=== PATIENT | female | born 1935 | race Caucasian/White ===

== ENCOUNTER → 2019-04-27 | Outpatient (CLI) | payer MEDICARE, BC ==
--- NOTE | 2019-04-27 10:36 | FL ---
EXAMINATION TYPE: FL barium swallow DATE OF EXAM: 04/27/2019 CLINICAL HISTORY: Worsening dysphagia, regurgitation, gastroesophageal reflux, hoarseness, and mid es ophageal pain for years (acute on chronic). TECHNIQUE: A double contrast esophagram is performed utilizing air and barium. A total of 1.39 ledy kady of fluoroscopic time was utilized during procedure. 46 fluoroscopic images were saved during the examination. COMPARISON: None FINDINGS: The esophagus shows diffusely abnormal esophageal motility with tertiary contractions throu ghout the examination and esophageal spasm. There is delayed flow through the distal esophagus into t he gastroesophageal junction and stomach. This appears to be a smooth stricture in a long segment in combination with esophageal spasm as there is eventual but markedly delayed relative distention. Sunday joan is noted however to be less than 50% of the more proximal esophagus. Esophageal contour is diffus nadia lobulated. Marked intraesophageal reflux to the level of the upper esophagus and therefore supine imaging was not performed. IMPRESSION: Long segment mid grade stricture with superimposed esophageal spasm. Eventual distention (to less than 50% of the more proximal esophageal caliber) of the stricture is seen with subsequent p assage of contrast into the stomach after marked delay. Severe intraesophageal reflux and severely a bnormal esophageal motility with numerous tertiary contractions and esophageal spasms.
== END | disposition home or self-care (01) ==
LOC: RADUSWWP 07:48
PROVIDERS: ATTEND Otolaryngology
DX: K21.9 Gastro-esophageal reflux disease without esophagitis (principal); K22.4 Dyskinesia of esophagus
CPT/HCPCS: 74220

== ENCOUNTER 2019-05-10 11:29 | Day surgery (SDC) | payer MEDICARE, BC ==
[2019-05-08 16:04] VITALS: BMI 23.8
[~2019-05-10 11:29] MED LIST: LACTATED RINGERS 1,000 ML IV SCH; LIDOCAINE 1% 20 ML VIAL (10MG/ML) FOR IV START INTRADERMA PRN
[2019-05-10 12:03] VITALS: RESP 16; TEMP 98.3
[2019-05-10] MEDS ORDERED: LIDOCAINE 1% INJ 10MG/ML (20 ML MDV) ONE (12:12)
[2019-05-10] MEDS ORDERED: PROPOFOL 10 MG/ML 20 ML VIAL IV ONE (12:12)
--- NOTE | 2019-05-10 12:30 | P.PCN ---
Date of Procedure: 05/10/19 Procedure(s) Performed: BRIEF HISTORY: Patient is a 83-year-old, pleasant, white female, scheduled for an upper endoscopy as a part of evaluation of progressive dysphagia to solids and liquids of several years duration. She has intermittent dysphagia to solids and has passive regurgitation with fullness in the midsternal area. Recent barium esophagogram showed evidence of distal/mid esophageal stricture and evidence of esophageal dysmotility. She is hence scheduled for an upper endoscopy with possible dilation. PROCEDURE PERFORMED: Esophagogastroduodenoscopy with biopsy. PREOPERATIVE DIAGNOSIS: Intermittent dysphagia to solids for the last several years duration IV sedation per anesthesia. PROCEDURE: After informed consent was obtained, the patient was brought into the endoscopy unit. IV sedation was administered by Anesthesia under continuous monitoring. Initially the Olympus GIF-140 video endoscope was inserted into the mouth. Esophagus intubated without any difficulty. It was gradually advanced into the stomach and duodenum and carefully examined. The bulb and the second part of the duodenum appeared normal. The scope at this time was withdrawn to the stomach, adequately insufflated with air, and upon careful examination, mucosa of the antrum, body, cardia and the fundus appeared normal. The scope was then withdrawn into the esophagus. The GE junction was located at 39 cm from the incisors. The esophagus appeared normal. There were no erosions or ulcerations seen. There was no evidence of esophageal stricture. There was evidence of esophageal dysmotility noted. Multiple biopsies were done in the mid and distal esophagus and the patient tolerated the procedure well. IMPRESSION: 1. No evidence of esophageal stricture or esophagitis 2. Possible esophageal dysmotility 3. Mild antral gastritis RECOMMENDATIONS: The findings of this examination were discussed with the patient as well as her family. She was advised to follow with the biopsy results. She will be a candidate for esophageal manometry if she continues to have persistent symptoms.
[2019-05-10 12:54] VITALS: BP 163/73; PULSE 70
== END 2019-05-10 13:18 | disposition home or self-care (01) ==
LOC: ORWHC2ENDO 11:29
PROVIDERS: ATTEND Internal Medicine Gastroenterology
DX: K29.50 Unspecified chronic gastritis without bleeding (principal); K20.9 Esophagitis, unspecified; I25.10 Atherosclerotic heart disease of native coronary artery without angina pectoris; E07.9 Disorder of thyroid, unspecified; Z88.2 Allergy status to sulfonamides; Z88.5 Allergy status to narcotic agent; Z88.8 Allergy status to other drugs, medicaments and biological substances; Z95.5 Presence of coronary angioplasty implant and graft; Z79.890 Hormone replacement therapy; Z79.899 Other long term (current) drug therapy
CPT/HCPCS: 88305; 43239; J2001; J2704

== ENCOUNTER 2020-10-11 17:20 | Inpatient (IN) | payer MEDICARE, BC ==
[2020-10-11 17:44] LABS: Glucose,Whole Blood 93 mg/dL (75-99)
[2020-10-11] MEDS ORDERED: SODIUM CHLORIDE 0.9% 500 ML 500 ML IV STA (17:49)
[2020-10-11 18:05] LABS: Basophils # (A) 0.1 k/uL (0-0.2); Basophils % (A) 1 %; Eosinophils # (A) 0.2 k/uL (0-0.7); Eosinophils % (A) 3 %; HCT 44.1 % (34.0-46.0); HGB 13.9 gm/dL (11.4-16.0); Lymphocytes # (A) 1.5 k/uL (1.0-4.8); Lymphocytes % (A) 25 %; MCH 29.3 pg (25.0-35.0); MCHC 31.6 g/dL (31.0-37.0); MCV 92.8 fL (80.0-100.0); Mean Platelet Volume 9.1; Monocytes # (A) 0.4 k/uL (0-1.0); Monocytes % (A) 7 %; Neutrophils # (A) 3.6 k/uL (1.3-7.7); Neutrophils % (A) 61 %; Platelet Count 165 k/uL (150-450); RBC 4.75 m/uL (3.80-5.40); RDW 13.3 % (11.5-15.5); WBC 5.9 k/uL (3.8-10.6)
--- NOTE | 2020-10-11 18:10 | ED ---
General Adult HPI - General Chief complaint: Eye Problems Stated complaint: Double Vision Time Seen by Provider: 10/11/20 17:43 Source: patient, RN notes reviewed, old records reviewed Mode of arrival: wheelchair Limitations: no limitations - History of Present Illness Initial comments: 85-year-old female presenting with double vision. Patient noted double vision around 10 AM this morning. She denies focal numbness or weakness. Denies headache. She states she has been feeling off balance for several days. She had bruising around her left eye but denies any specific had arrived trauma. She states the double vision improves with covering of each eye individually. Denies blurry vision. She has a history of macular degeneration as well. - Related Data Home Medications Medication Instructions Recorded Confirmed Aspirin [Adult Low Dose Aspirin EC] 81 mg PO DAILY 05/08/19 05/10/19 Albuterol Nebulized [Ventolin 2.5 mg INHALATION BID 05/09/19 05/10/19 Nebulized] Alendronate Sodium [Fosamax] 35 mg PO DAILY 05/09/19 05/10/19 Calcium Carbonate [Calcium] 600 mg PO DAILY 05/09/19 05/10/19 Cholecalciferol [Vitamin D3 (25 1,000 unit PO DAILY 05/09/19 05/10/19 Mcg = 1000 Iu)] Cyanocobalamin (Vitamin B-12) 1,000 mcg PO DAILY 05/09/19 05/10/19 [Vitamin B-12] Dorzolamide/Timolol/Pf 2 drop BOTH EYES DAILY 05/09/19 05/10/19 [Dorzolamide 2%-Timolol 0.5%] Fexofenadine HCl [Ailin Allergy] 180 mg PO DAILY 05/09/19 05/10/19 Fluticasone Nasal [place] [Flonase 2 spr EA NOSTRIL QID 05/09/19 05/10/19 Nasal [place]] Folic Acid 1 mg PO DAILY 05/09/19 05/10/19 Gabapentin [Neurontin] 400 mg PO BID 05/09/19 05/10/19 Ipratropium [place] 0.06%Nasal 2 spray EA NOSTRIL QID 05/09/19 05/10/19 [Atrovent Nasal 0.06%] Isosorbide Mononitrate ER [Imdur] 30 mg PO DAILY 05/09/19 05/10/19 Levothyroxine Sodium [Synthroid] 88 mcg PO DAILY 05/09/19 05/10/19 Loteprednol Etabonate [Lotemax] 1 drop BOTH EYES MOWEFR 05/09/19 05/10/19 Magnesium Oxide [Mag-Ox] 250 mg PO DAILY 05/09/19 05/10/19 Meclizine HCl 25 mg PO DAILY PRN 05/09/19 05/10/19 Meclizine [Antivert] 25 mg PO DAILY PRN 05/09/19 05/10/19 Melatonin 5 mg PO DAILY 05/09/19 05/10/19 Montelukast [Singulair] 10 mg PO DAILY 05/09/19 05/10/19 Naproxen 500 mg PO DAILY PRN 05/09/19 05/10/19 Omeprazole 20 mg PO BID 05/09/19 05/10/19 Pyridoxine HCl (Vitamin B6) 100 mg PO DAILY 05/09/19 05/10/19 [Vitamin B-6] Venlafaxine HCl [Effexor XR] 150 mg PO DAILY 05/09/19 05/10/19 traZODone HCL 50 mg PO DAILY 05/09/19 05/10/19 Allergies Allergy/AdvReac Type Severity Reaction Status Date / Time codeine Allergy Itching Verified 10/11/20 17:35 povidone-iodine Allergy Rash/Hives Verified 10/11/20 17:35 [From Betadine] soap [From Betadine] Allergy Rash/Hives Verified 10/11/20 17:35 Sulfa (Sulfonamide Allergy Unknown Verified 10/11/20 17:35 Antibiotics) Review of Systems ROS Statement: Those systems with pertinent positive or pertinent negative responses have been documented in the HPI. ROS Other: All systems not noted in ROS Statement are negative. Past Medical History Past Medical History: Asthma, CVA/TIA, Osteoarthritis (OA) Additional Past Medical History / Comment(s): worsening weakness, difficulty swallowing History of Any Multi-Drug Resistant Organisms: None Reported Past Surgical History: Back Surgery, Breast Surgery, Cholecystectomy, Heart Catheterization, Heart Catheterization With Stent, Hysterectomy Additional Past Surgical History / Comment(s): rods in back Past Anesthesia/Blood Transfusion Reactions: Motion Sickness Additional Past Anesthesia/Blood Transfusion Reaction / Comment(s): dizziness Date of Last Stent Placement:: 2014 Past Psychological History: Depression Smoking Status: Former smoker Past Drug Use History: None Reported - Past Family History Brother(s) Family Medical History: Cancer Sister(s) Family Medical History: Coronary Artery Disease (CAD) General Exam Limitations: no limitations General appearance: alert, in no apparent distress Head exam: Present: atraumatic, normocephalic Eye exam: Present: PERRL, periorbital swelling, other (Ecchymosis around the left eye, with periorbital soft tissue swelling. She does appear to have a medial gaze of the left eye which is somewhat inferior.) ENT exam: Present: normal exam Neck exam: Present: normal inspection. Absent: tenderness, meningismus Respiratory exam: Present: normal lung sounds bilaterally. Absent: respiratory distress Cardiovascular Exam: Present: regular rate, normal rhythm GI/Abdominal exam: Present: soft. Absent: distended, tenderness, guarding Extremities exam: Present: normal inspection, normal capillary refill. Absent: pedal edema, calf tenderness Neurological exam: Present: alert, motor sensory deficit (Left eye has inferior medial gaze, however patient is able to rotate laterally and superiorly.). Absent: CN II-XII intact Psychiatric exam: Present: normal affect, normal mood Skin exam: Present: warm, dry, intact. Absent: cyanosis, diaphoretic Course Vital Signs 10/11/20 17:27 Temperature 97.8 F Pulse Rate 65 Respiratory 20 Rate Blood Pressure 134/74 O2 Sat by Pulse 95 Oximetry EKG Findings - EKG Comments: EKG Findings:: EKG: Normal sinus rhythm, rate of 61, MA interval 136, QRS duration 82, QTC 426, no ST segment elevation Medical Decision Making - Medical Decision Making 85-year-old female presenting with double vision, and unsteady gait. She has no focal numbness or weakness. No headache. She has bruising around the left eye suggestive of trauma but there is no trauma reported. CT facial bones and brain has been ordered, negative for intracranial hemorrhage or mass effect, no traumatic injury. She does seem to have a medial inferior gaze of the left eye at rest. Although her extraocular motions are grossly intact. Patient has normal CBC, normal CMP she is in sinus rhythm. I do have a suspicion for stroke in this patient. MRI has been ordered. Case has been discussed with Dr. Parekh who will admit. Neurology placed on consult. - Lab Data Result diagrams: 10/11/20 17:50 10/11/20 17:50 Lab Results 10/11/20 10/11/20 10/11/20 Range/Units 17:42 17:50 17:50 WBC 5.9 (3.8-10.6) k/uL RBC 4.75 (3.80-5.40) m/uL Hgb 13.9 (11.4-16.0) gm/dL Hct 44.1 (34.0-46.0) % MCV 92.8 (80.0-100.0) fL MCH 29.3 (25.0-35.0) pg MCHC 31.6 (31.0-37.0) g/dL RDW 13.3 (11.5-15.5) % Plt Count 165 (150-450) k/uL MPV 9.1 Neutrophils % 61 % Lymphocytes % 25 % Monocytes % 7 % Eosinophils % 3 % Basophils % 1 % Neutrophils # 3.6 (1.3-7.7) k/uL Lymphocytes # 1.5 (1.0-4.8) k/uL Monocytes # 0.4 (0-1.0) k/uL Eosinophils # 0.2 (0-0.7) k/uL Basophils # 0.1 (0-0.2) k/uL PT 10.6 (9.0-12.0) sec INR 1.0 (<1.2) APTT 25.2 (22.0-30.0) sec Sodium (137-145) mmol/L Potassium (3.5-5.1) mmol/L Chloride (98-107) mmol/L Carbon Dioxide (22-30) mmol/L Anion Gap mmol/L BUN (7-17) mg/dL Creatinine (0.52-1.04) mg/dL Est GFR (CKD-EPI)AfAm (>60 ml/min/1.73 sqM) Est GFR (CKD-EPI)NonAf (>60 ml/min/1.73 sqM) Glucose (74-99) mg/dL POC Glucose (mg/dL) 93 (75-99) mg/dL POC Glu [employer] ID Kash Marks Calcium (8.4-10.2) mg/dL Total Bilirubin (0.2-1.3) mg/dL AST (14-36) U/L ALT (4-34) U/L Alkaline Phosphatase (38-126) U/L Total Protein (6.3-8.2) g/dL Albumin (3.5-5.0) g/dL 10/11/20 Range/Units 17:50 WBC (3.8-10.6) k/uL RBC (3.80-5.40) m/uL Hgb (11.4-16.0) gm/dL Hct (34.0-46.0) % MCV (80.0-100.0) fL MCH (25.0-35.0) pg MCHC (31.0-37.0) g/dL RDW (11.5-15.5) % Plt Count (150-450) k/uL MPV Neutrophils % % Lymphocytes % % Monocytes % % Eosinophils % % Basophils % % Neutrophils # (1.3-7.7) k/uL Lymphocytes # (1.0-4.8) k/uL Monocytes # (0-1.0) k/uL Eosinophils # (0-0.7) k/uL Basophils # (0-0.2) k/uL PT (9.0-12.0) sec INR (<1.2) APTT (22.0-30.0) sec Sodium 139 (137-145) mmol/L Potassium 4.6 (3.5-5.1) mmol/L Chloride 104 (98-107) mmol/L Carbon Dioxide 30 (22-30) mmol/L Anion Gap 5 mmol/L BUN 23 H (7-17) mg/dL Creatinine 0.65 (0.52-1.04) mg/dL Est GFR (CKD-EPI)AfAm >90 (>60 ml/min/1.73 sqM) Est GFR (CKD-EPI)NonAf 81 (>60 ml/min/1.73 sqM) Glucose 96 (74-99) mg/dL POC Glucose (mg/dL) (75-99) mg/dL POC Glu [employer] Services Manager ID Calcium 9.6 (8.4-10.2) mg/dL Total Bilirubin 0.5 (0.2-1.3) mg/dL AST 32 (14-36) U/L ALT 23 (4-34) U/L Alkaline Phosphatase 90 (38-126) U/L Total Protein 7.0 (6.3-8.2) g/dL Albumin 3.8 (3.5-5.0) g/dL Disposition Clinical Impression: Double vision Disposition: ADMITTED IP TO THIS [facility] Condition: Stable Is patient prescribed a controlled substance at d/c from ED?: No Referrals: Jolie Waddell MD [Primary Care Provider] - 1-2 days Decision to Admit Reason: Admit from EC Decision Date: 10/11/20 Decision Time: 19:39
[2020-10-11 18:19] LABS: ALT 23 U/L (4-34); AST 32 U/L (14-36); African American GFR (CKD) >90 (>60 ml/min/1.73 sqM); Albumin 3.8 g/dL (3.5-5.0); Alkaline Phosphatase 90 U/L (38-126); Anion Gap 5 mmol/L; Blood Urea Nitrogen 23 mg/dL (7-17); Calcium 9.6 mg/dL (8.4-10.2); Carbon Dioxide 30 mmol/L (22-30); Chloride 104 mmol/L (98-107); Glucose 96 mg/dL (74-99); Non-African American GFR(CKD) 81 (>60 ml/min/1.73 sqM); Potassium 4.6 mmol/L (3.5-5.1); Sodium 139 mmol/L (137-145); Total Bilirubin 0.5 mg/dL (0.2-1.3)
[2020-10-11 18:20] LABS: Partial Thromboplastin Time 25.2 sec (22.0-30.0); Prothrombin Time 10.6 sec (9.0-12.0)
--- NOTE | 2020-10-11 19:04 | CT ---
EXAMINATION TYPE: CT brain wo con DATE OF EXAM: 10/11/2020 HISTORY: Left orbital injury with bruising.. Neuro deficit, acute, stroke suspected. CT DLP: 1278.4 mGycm. Automated Exposure Control for Dose Reduction was Utilized. TECHNIQUE: CT scan of the head is performed without contrast. COMPARISON: None FINDINGS: There is no acute intracranial hemorrhage, midline shift, or mass effect identified. The ventricles, sulci, and cisterns are normal in size and configuration. No abnormal extra-axial fluid collection. No depressed calvarial fracture. Extracranial soft tissues are grossly unremarkable. The globes are grossly symmetric with cataract postsurgical changes. Visual ized sinuses and mastoid air cells are clear. IMPRESSION: No acute intracranial hemorrhage, midline shift, or mass effect.
--- NOTE | 2020-10-11 19:06 | CT ---
EXAMINATION TYPE: CT facial bones wo con DATE OF EXAM: 10/11/2020 COMPARISON: None HISTORY: Left orbital injury with bruising. CT DLP: 1278.4 mGycm Automated exposure control for dose reduction was used. TECHNIQUE: CT scan of the sinuses is performed without contrast, axial images are obtained, coronal r eformatted images are also reviewed. FINDINGS: The paranasal sinuses are well aerated. Ethmoid air cells are clear. No evidence of facial bone fracture. No significant soft tissue swelling. Globes are grossly symmetric with cataract posts urgical change. IMPRESSION: No facial bone fracture.
--- NOTE | 2020-10-11 19:08 | XR ---
EXAMINATION TYPE: XR chest 2V DATE OF EXAM: 10/11/2020 CLINICAL HISTORY: altered mental status. TECHNIQUE: Frontal and lateral view of the chest. COMPARISON: None FINDINGS: The cardiomediastinal silhouette is within normal limits for size. Pulmonary vasculature i s normal. There is no focal air space opacity. No pleural effusion. No pneumothorax seen. No acute d isplaced osseous fracture. Degenerative changes of the spine. Incompletely visualized lumbar fixation hardware. IMPRESSION: No acute cardiopulmonary process.
[2020-10-11] MEDS ORDERED: ASPIRIN 325 MG TAB PO STA (19:19)
[2020-10-11] MEDS: SODIUM CHLORIDE 0.9% 1,000 ML IV SCH (20:29)
[2020-10-11] MEDS: HEPARIN SODIUM,PORCINE/PF 5,000 UNIT/0.5 ML SYRINGE SQ SCH (20:30)
[2020-10-11] MEDS ORDERED: MELATONIN 5 MG TABLET PO PRN (21:50)
[2020-10-11] MEDS ORDERED: ALBUTEROL HFA INHALER INHALATION PRN (21:50)
[2020-10-11] MEDS ORDERED: MECLIZINE 25 MG TAB PO PRN (21:50)
--- NOTE | 2020-10-11 21:56 | HP ---
HISTORY AND PHYSICAL DATE OF SERVICE: 10/11/2020 CHIEF COMPLAINT: Left eye ecchymosis as well as double vision. HISTORY OF PRESENT ILLNESS: This 85-year-old woman with a past medical history of multiple medical problems, including asthma, CVA, TIA, DJD, history of worsening weakness, difficulty in swallowing, history of CAD, stent, being followed by a primary physician in the [facility], was actually noted to have some ecchymosis around the left eye by the family for several days, and this morning the patient was having double vision, mostly in the left side, and the patient also had some unsteadiness on the left side. The patient came to [facility] and was admitted to for further evaluation and treatment. The initial CT scan, including the face CT scan, did not show any acute abnormality. The patient is being closely monitored at this time. There is no history of any fever, rigor or chills. No history of headache, loss of consciousness, seizures at this time. Patient also complains of ear itching. PAST MEDICAL HISTORY: Asthma, CVA, TIA, DJD, history of back surgery. MEDICATIONS: Medications prior to admission include trazodone, Effexor XR, vitamin B6, omeprazole, Naprosyn, Singulair, melatonin, Antivert, meclizine, magnesium oxide, Lotemax, Synthroid, Imdur, Atrovent, Neurontin, Flonase, Ailin, dorzolamide, vitamin B12, vitamin D3, calcium, aspirin, Fosamax, Ventolin. ALLERGIES: CODEINE, POVIDONE-IODINE, SOAP AND SULFA. FAMILY HISTORY: History of cancer in the family. SOCIAL HISTORY: No history of smoking. No history of alcohol intake. REVIEW OF SYSTEMS: ENT: No diminished hearing. No diminished vision. CARDIOVASCULAR SYSTEM: No angina, palpitations. RESPIRATORY SYSTEM: As mentioned earlier. GI: As mentioned earlier. : No dysuria or retention. NERVOUS SYSTEM: No numbness, weakness. ALLERGY/IMMUNOLOGY: No asthma, hayfever. MUSCULOSKELETAL: As mentioned earlier. HEMATOLOGY/ONCOLOGY: No history of anemia. ENDOCRINE: As mentioned earlier. CONSTITUTIONAL: As mentioned earlier. DERMATOLOGY: Negative. RHEUMATOLOGY: Negative. PSYCHIATRY: As mentioned earlier. NEUROLOGICAL: As mentioned earlier. PHYSICAL EXAMINATION: Alert and oriented x3. Pulse 65, blood pressure 135/70, respiration 20, temperature 97.8, pulse ox 94% on room air. HEENT: Conjunctivae normal. Oral mucosa moist. NECK: No jugular venous distention. No carotid bruit. No lymph node enlargement. CARDIOVASCULAR SYSTEM: S1, S2 muffled. No S3. No S4. RESPIRATORY SYSTEM: Breath sounds diminished at the bases. No rhonchi. No crackles. ABDOMEN: Soft, non-tender. LEGS: No edema. No swelling. NERVOUS SYSTEM: Higher functions as mentioned earlier. Nystagmus to the left present. Some incoordination on the left side also present. Some ecchymosis around the left eye also present. Nontender. No evidence of other petechiae or hemorrhage present. SKIN: As mentioned earlier. LYMPHATICS: No lymph node palpable in neck, axillae or groin. JOINTS: No active deforming arthropathy. LABS: At this time, CBC within normal limits and BUN is 23. ASSESSMENT: 1. Diplopia and incoordination for evaluation. Rule out cerebellar stroke. 2. Left eye ecchymosis of undetermined etiology. 3. History of cerebrovascular accident, transient ischemic attack. 4. History of asthma. 5. History of degenerative joint disease. 6. History of gait dysfunction. 7. Cholecystectomy. 8. History of coronary artery disease, stent. 9. History of depression. 10.History of nicotine dependence. 11.Mild protein-calorie malnutrition. BMI of 19.5. RECOMMENDATIONS AND DISCUSSION: In this 85-year-old woman who presented with multiple complex medical issues, we will monitor the patient closely, continue the current medications, continue symptomatic treatment. Antiplatelet agents. Neurology consultation. Complete neurovascular workup. MRI of the brain, 2D echo, carotid Doppler. Resume the home medications. Repeat labs. COVID-19 has been requested. Guarded prognosis. Further recommendations to follow. MMODL / IJN: [id number] /
[2020-10-11] MEDS ORDERED: LOTEPREDNOL ETABONATE BOTH EYES SCH (22:00)
--- NOTE | 2020-10-11 22:38 | US ---
EXAMINATION TYPE: US carotid duplex BILAT DATE OF EXAM: 10/11/2020 COMPARISON: CT brain CLINICAL HISTORY: Stenosis. Double vision; prior TIA per patient EXAM MEASUREMENTS: RIGHT: Peak Systolic Velocity (PSV) cm/sec ----- Right CCA: 53.1 ----- Right ICA: 102.6 ----- Right ECA: 84.1 ICA/CCA ratio: 1.9 RIGHT: End Diastole cm/sec ----- Right CCA: 15.6 ----- Right ICA: 32.0 ----- Right ECA: 13.6 LEFT: Peak Systolic Velocity (PSV) cm/sec ----- Left CCA: 40.6 ----- Left ICA: 93.3 ----- Left ECA: 43.5 ICA/CCA ratio: 2.3 LEFT: End Diastole cm/sec ----- Left CCA: 10.9 ----- Left ICA: 20.8 ----- Left ECA: 6.0 VERTEBRALS (direction of flow): Right Vertebral: Antegrade Left Vertebral: Antegrade Rhythm: Normal Mild intimal wall changes are seen. Peak systolic velocities are within normal limits bilaterally. Hi gh carotid bulb bifurcation is noted bilaterally. IMPRESSION: 1. No evidence of hemodynamically significant stenosis on the right. Any stenosis that may be present is less than 50%. 2. Although there is mildly elevated left ICA/CCA ratio of 2.3 , the peak systolic velocities and end -diastolic velocities on the left are within normal limits. There is likely no hemodynamically signif icant stenosis, and any stenosis that may be present is likely less than 50%. Criteria for Assigning % of Stenosis / Diameter reduction (Estimation based on the indirect measurements of the internal carotid artery velocities (ICA PSV). 1. Normal (no stenosis)=ICA PSV < 125 cm/s: ratio < 2.0: ICA EDV<40 cm/s. 2. Less than 50% stenosis=ICA PSV < 125 cm/s: ratio < 2.0: ICA EDV<40 cm/s. 3. 50 to 69% stenosis=ICA PSV of 125 to 230 cm/s: ration 2.0 ? 4.0: ICA EDV 40-100 cm/s. 4. Greater than 70% stenosis to near occlusion= ICA PSV > 230 cm/s: ratio > 4.0: ICA EDV > 100 cm/s. 5. Near occlusion= ICA PSV velocities may be low or undetectable: variable ratio and ICA EDV. 6. Total occlusion=unable to detect flow.
[2020-10-11] MEDS: GABAPENTIN 100 MG CAP PO SCH (23:04)
[2020-10-12] MEDS: SODIUM CHLORIDE 0.9% 1,000 ML IV SCH ×2 (00:44→17:00)
[2020-10-12] MEDS: PANTOPRAZOLE 40 MG TABLET PO SCH (06:48)
[2020-10-12] MEDS: HEPARIN SODIUM,PORCINE/PF 5,000 UNIT/0.5 ML SYRINGE SQ SCH ×2 (09:02→21:05)
[2020-10-12] MEDS: GABAPENTIN 100 MG CAP PO SCH ×3 (09:02→21:05)
[2020-10-12] MEDS: FOLIC ACID 1 MG TAB PO SCH (09:02)
[2020-10-12] MEDS: LEVOTHYROXINE 100 MCG TAB PO SCH (09:02)
[2020-10-12] MEDS: VENLAFAXINE HCL ER 150 MG CAP PO SCH (09:02)
[2020-10-12] MEDS: TIMOLOL BOTH EYES SCH ×2 (09:03→21:04)
[2020-10-12] MEDS: DORZOLAMIDE BOTH EYES SCH ×2 (09:03→21:04)
[2020-10-12] MEDS: ACETAMINOPHEN TAB 500 MG TAB PO SCH ×2 (09:03→21:05)
[2020-10-12 09:16] LABS: African American GFR (CKD) >90 (>60 ml/min/1.73 sqM); Anion Gap 2 mmol/L; Blood Urea Nitrogen 18 mg/dL (7-17); Calcium 8.5 mg/dL (8.4-10.2); Carbon Dioxide 29 mmol/L (22-30); Chloride 108 mmol/L (98-107); Cholesterol 175 mg/dL (<200); Glucose 91 mg/dL (74-99); HDL Cholesterol 42 mg/dL (40-60); LDL Cholesterol,Calculated 110 mg/dL (0-99); Non-African American GFR(CKD) 83 (>60 ml/min/1.73 sqM); Potassium 4.1 mmol/L (3.5-5.1); Sodium 139 mmol/L (137-145); Triglycerides 114 mg/dL (<150)
[2020-10-12 09:41] LABS: Basophils % (A) 1 %; Eosinophils # (A) 0.2 k/uL (0-0.7); Eosinophils % (A) 4 %; HCT 39.4 % (34.0-46.0); HGB 12.8 gm/dL (11.4-16.0); Lymphocytes # (A) 1.3 k/uL (1.0-4.8); Lymphocytes % (A) 28 %; MCH 30.1 pg (25.0-35.0); MCHC 32.5 g/dL (31.0-37.0); MCV 92.5 fL (80.0-100.0); Mean Platelet Volume 9.2; Monocytes # (A) 0.4 k/uL (0-1.0); Monocytes % (A) 8 %; Neutrophils # (A) 2.6 k/uL (1.3-7.7); Neutrophils % (A) 56 %; Platelet Count 136 k/uL (150-450); RBC 4.25 m/uL (3.80-5.40); RDW 12.9 % (11.5-15.5); WBC 4.5 k/uL (3.8-10.6)
--- NOTE | 2020-10-12 11:13 | P.CNNES ---
History of Present Illness Consult date: 10/11/20 Requesting physician: Bethel Tilley Reason for Consult: Double vision History of Present Illness: Patient is a 85-year-old female came to the hospital today at 5:30 PM for double vision. Patient noted double vision around 10 AM. No focal numbness or weakness. No headache. Patient has been feeling off balance for several days. Patient's daughter was also present at the time of this interview. On 10/08/2020 patient's daughter remembers that she went in at 7:30 AM as usual to give her medications and put eyedrops and she was fine. When her daughter went in at 10:30 AM to wake her up, noticed that she had a black eye, on the left side. Patient just had been in her bed since 7:30, did not fall or hit her head to anything. She just woke up like this. There is no object near her bed that she could have hit her head on. There were no other symptoms, headache, double vision, loss of vision, blurred vision, or any focal symptoms, therefore the patient and her daughter did not seek any medical attention. This morning patient developed binocular diplopia in the primary vision. Patient states that the double vision resolves if she looks to the either side. It also resolves when she closes one eye or the other eye. Again, no other symptoms, but they got concerned and decided to come to the ER. Vital signs blood pressure 134/74, pulse rate [address] head showed no acute intracranial hemorrhage, midline shift or mass effect. CT of the facial bones negative for fracture. EKG with normal sinus rhythm. Blood tests shows normal CBC, PT/PTT, CMP. Lisa virus PCR negative. Patient takes B12 orally, folic acid 1 mg, melatonin, omeprazole, trazodone 25 mg, Effexor XR 150 mg, meclizine, gabapentin 100 mg 3 times a day, levothyroxine. Patient used to take aspirin in the past, but has stopped taking it about a year ago. Denies hypertension, diabetes, tobacco or any alcohol use. Patient denies any headache, dizziness, no falls. Patient has been noticing some off balance, which her daughter claims is because of double vision. She has some weakness in the legs but that may be related to her age. No focal symptoms. Review of Systems As mentioned in HPI. All other 14 point of review systems unremarkable. No chest pain shortness of breath wheezing or cough. Patient never had any Covid infection. She had received J&J vaccination a few weeks ago. Denies abdominal pain nausea vomiting diarrhea. Past Medical History Past Medical History: Asthma, CVA/TIA, Osteoarthritis (OA) Additional Past Medical History / Comment(s): worsening weakness, difficulty swallowing History of Any Multi-Drug Resistant Organisms: None Reported Past Surgical History: Back Surgery, Breast Surgery, Cholecystectomy, Heart Catheterization, Heart Catheterization With Stent, Hysterectomy Additional Past Surgical History / Comment(s): rods in back Past Anesthesia/Blood Transfusion Reactions: Motion Sickness Additional Past Anesthesia/Blood Transfusion Reaction / Comment(s): dizziness Date of Last Stent Placement:: 2014 Past Psychological History: Depression Smoking Status: Former smoker Past Drug Use History: None Reported - Past Family History Brother(s) Family Medical History: Cancer Sister(s) Family Medical History: Coronary Artery Disease (CAD) Medications and Allergies Home Medications Medication Instructions Recorded Confirmed Type Calcium Carbonate [Calcium] 600 mg PO DAILY 05/09/19 10/11/20 History Cholecalciferol [Vitamin D3 (25 1,000 unit PO DAILY 05/09/19 10/11/20 History Mcg = 1000 Iu)] Cyanocobalamin (Vitamin B-12) 1,000 mcg PO DAILY 05/09/19 10/11/20 History [Vitamin B-12] Dorzolamide/Timolol/Pf 1 drop BOTH EYES BID 05/09/19 10/11/20 History [Dorzolamide 2%-Timolol 0.5%] Folic Acid 1 mg PO DAILY 05/09/19 10/11/20 History Loteprednol Etabonate [Lotemax] 1 drop BOTH EYES MOWEFR 05/09/19 10/11/20 History Meclizine [Antivert] 25 mg PO DAILY PRN 05/09/19 10/11/20 History Melatonin 5 mg PO HS 05/09/19 10/11/20 History Montelukast [Singulair] 10 mg PO HS 05/09/19 10/11/20 History Omeprazole 20 mg PO BID 05/09/19 10/11/20 History Venlafaxine HCl [Effexor XR] 150 mg PO DAILY 05/09/19 10/11/20 History traZODone HCL 25 mg PO HS 05/09/19 10/11/20 History Acetaminophen Tab [Tylenol Tab] 500 mg PO BID 10/11/20 10/11/20 History Albuterol Inhaler [Ventolin Hfa 2 puff INHALATION RT-QID PRN 10/11/20 10/11/20 History Inhaler] Gabapentin [Neurontin] 100 mg PO TID 10/11/20 10/11/20 History Levothyroxine Sodium 100 mcg PO DAILY 10/11/20 10/11/20 History Rutin/Quercetin/Bioflav/Bilber 1 cap PO DAILY 10/11/20 10/11/20 History [Bilberry Extract] Allergies Allergy/AdvReac Type Severity Reaction Status Date / Time codeine Allergy Itching Verified 10/11/20 20:31 povidone-iodine Allergy Rash/Hives Verified 10/11/20 20:31 [From Betadine] soap [From Betadine] Allergy Rash/Hives Verified 10/11/20 20:31 Sulfa (Sulfonamide Allergy Unknown Verified 10/11/20 20:31 Antibiotics) Physical Examination - Vital Signs Vital Signs: Vital Signs Temp Pulse Resp BP Pulse Ox 10/11/20 20:30 81 16 140/70 93 L 10/11/20 17:27 97.8 F 65 20 134/74 95 Intake and Output 10/11/20 10/11/20 10/11/20 06:59 14:59 22:59 Other: Weight 49.895 kg On examination patient is an elderly female, very pleasant, in no acute distress. Patient is alert and awake fully oriented. Speech and language functions are normal. Attention, concentration and fund of knowledge is adequate. Patient has left periorbital ecchymosis/bruising with no pain. On cranial nerve examination pupils are round and reactive to light, visual diamond are full on confrontation, extraocular muscles are intact, slight nystagmus noted onto the left side. Patient was noticing diplopia on looking to the right side, sometimes in the primary gaze, somewhat inconsistent. No obvious cranial nerve deficit was clearly visible at this time. Face is symmetric, tongue protrudes to the midline. Palatal elevation and sensation is normal, hearing and shoulder shrug normal, facial sensations normal. On muscle strength testing there is no pronator drift and the strength is normal in arms and legs distally and proximally. Reflexes are 1 in the upper and lower limbs and plantars downgoing. Sensory to touch is equal. No ataxia for [id number] testing on either side. Tone and bulk of muscles normal. Her gait deferred. On general examination, there is no carotid bruit, S1 and S2 audible, abdomen is soft nontender. Chest is clear. Peripheral pulses present. No edema Results - Laboratory Findings CBC and BMP: 10/12/20 08:17 10/12/20 08:17 Abnormal Lab Findings: Abnormal Labs 10/11/20 17:50 BUN 23 H Assessment and Plan Assessment: * Diplopia since this morning, appears to be mechanical in nature rather than neurological. Patient had developed spontaneous, atraumatic left periorbital ecchymosis on 10/08/2020 on waking up. I think after the blood product settled down, may have resulted in this diplopia from mechanical causes. No obvious cranial nerves deficits noted. Exam is otherwise nonfocal. Plan: * Patient had carotid Doppler, revealed no evidence of hemodynamically significant stenosis on the right. Any stenosis that may be present is less than 50%. Although there is mildly elevated left ICA/CCA ratio of 2.3, the peak systolic velocities and end-diastolic velocities on the left are within normal limits. There is likely no hemodynamically significant stenosis in any stenosis that may be present is likely less than 50%. Antegrade flow in both vertebral arteries. * CT head and facial bones are normal. * MRI of the brain and 2-D echo have been ordered by ED physician. We will follow the results. * If above tests are negative, I think watchful observation may be the choice, as diplopia is probably mechanical from the reasons mentioned above. If the symptoms persist, patient was recommended to follow up with an sales service assistant.
[2020-10-12 12:31] VITALS: BMI 18.9
--- NOTE | 2020-10-12 12:58 | ECHOF ---
Referral Reason:Thrombus MEASUREMENTS -------- HEIGHT: 160.0 cm WEIGHT: 48.5 kg BP: 122/68 RVIDd: 2.1 cm (< 3.3) IVSd: 1.0 cm (0.6 - 1.1) LVIDd: 3.2 cm (3.9 - 5.3) LVPWd: 1.2 cm (0.6 - 1.1) IVSs: 1.3 cm LVIDs: 2.3 cm LVPWs: 1.4 cm LAESV Index (A-L): 40.40 ml/m Ao Diam: 2.8 cm (2.0 - 3.7) AV Cusp: 1.5 cm (1.5 - 2.6) MV EXCURSION: 16.631 mm (> 18.000) MV EF SLOPE: 102 mm/s (70 - 150) EPSS: 0.4 cm MV E Singh: 0.94 m/s MV DecT: 219 ms MV A Singh: 0.71 m/s MV E/A Ratio: 1.33 AR PHT: 599 ms RAP: 20.00 mmHg RVSP: 59.73 mmHg FINDINGS -------- Sinus rhythm. This was a technically adequate study. The left ventricular size is normal. Left ventricular wall thickness is normal. Overall left vent ricular systolic function is normal with, an EF between 55 - 60 %. The right ventricle is normal in size. LA is severely dilated >40 ml/m2 The right atrium is mildly enlarged. Interatrial and interventricular septum intact. The aortic valve is trileaflet and appears structurally normal. Trace to mild aortic regurgitation. There is no evidence of aortic stenosis. Moderate mitral regurgitation is present. Moderate tricuspid regurgitation present. There is moderate to severe pulmonary hypertension. The right ventricular systolic pressure, as measured by Doppler, is 59.73mmHg. There is no pulmonic regurgitation present. The aortic root size is normal. The inferior vena cava is dilated with poor inspiratory collapse which is consistent with estimated r ight atrial pressure of 20 mmHg. There is no pericardial effusion. CONCLUSIONS -------- 1. The left ventricular size is normal. 2. Left ventricular wall thickness is normal. 3. Overall left ventricular systolic function is normal with, an EF between 55 - 60 %. 4. LA is severely dilated >40 ml/m2 5. The right atrium is mildly enlarged. 6. Trace to mild aortic regurgitation. 7. Moderate mitral regurgitation is present. 8. Moderate tricuspid regurgitation present. 9. There is moderate to severe pulmonary hypertension. 10. The right ventricular systolic pressure, as measured by Doppler, is 59.73mmHg. 11. The inferior vena cava is dilated with poor inspiratory collapse which is consistent with estimat ed right atrial pressure of 20 mmHg. OUTER DIAMETER GRINDER: Merle Hoff RDCS
--- NOTE | 2020-10-12 14:25 | MR ---
EXAMINATION TYPE: MR brain wo/w con DATE OF EXAM: 10/12/2020 COMPARISON: None- HISTORY: Double vision CONTRAST: Standard multiplanar, multisequence MRI departmental protocol utilizing 5 mL intravenous gadolinium c ontrast. There is diffuse cerebral cortical atrophy. There is no mass effect nor midline shift. Diffusion imag es show no sign of an acute infarct. On the T2 and FLAIR images there are small scattered foci of increased signal at the navarro-white matte r junction of both cerebral hemispheres. Total number is less than 10 and these measure less than 5 m m. Most of these are less than 3 mm. The skull base is intact. The brainstem is intact. Corpus callos um is intact. Sella turcica appears normal. There is no evidence of posterior fossa mass. There is no evidence of orbital mass. There is normal enhancement of the venous sinuses. I see no pathologic enhancement. IMPRESSION: Mild cerebral atrophy. Minimal white matter changes consistent with some degree of chronic small vess el ischemia. No evidence of cortical infarct.
--- NOTE | 2020-10-12 18:07 | PN ---
PROGRESS NOTE DATE OF SERVICE: 10/12/2020 INTERVAL HISTORY: This 85-year-old woman was admitted with left eye ecchymosis and as well as diplopia. Left eye is being closely monitored at this time. Neurology is following the patient. The patient also underwent a complete neurovascular workup and carotid Doppler showed hemodynamically insignificant stenosis less than 50% is suspected. Patient also had a 2D echo which was read by Cardiology, which showed ejection fraction about 50% to 60% and than 40 and moderate mitral regurgitation and moderate tricuspid regurgitation and moderate history of pulmonary hypertension as well. An MRI of the brain was completed today which showed mild cerebral atrophy and minimal white matter changes consistent with some degree of chronic small vessel disease. No evidence of cortical infarct was noted. The patient is still unsteady walking. PAST MEDICAL HISTORY: Reviewed. REVIEW OF SYMPTOMS: ENT: As mentioned earlier. Diplopia is getting better. CARDIOVASCULAR: No angina or palpitations. RESPIRATORY: As mentioned earlier. GI: As mentioned earlier. : No dysuria. NERVOUS SYSTEM: As mentioned earlier. CURRENT MEDICATIONS: Reviewed include Tylenol, Ventolin, aspirin, folic acid, Neurontin. Doses are reviewed. PHYSICAL EXAM: GENERAL: Patient is alert and oriented times three. VITAL SIGNS: Pulse 69, blood pressure 140/70, respirations 20, temperature 98.4, pulse ox 94% on room air. HEENT: Conjunctivae normal. Nystagmus present to the point of fixation on the left side. NECK: No jugular venous distention. No carotid bruits. RESPIRATORY: Breath sounds diminished at the bases. No rhonchi, no crackles. HEART: S1 and S2, muffled. ABDOMEN: Soft, no tenderness. No masses palpable. EXTREMITIES: No edema, no swelling. NERVOUS: No focal deficits. LABS: Platelets 136. Other labs are noted. LDL is 110. ASSESSMENT: 1. Diplopia with incoordination, possibly acute transient ischemic attack. 2. Left eye ecchymosis, undetermined etiology, possibly traumatic. 3. History of cerebrovascular accident, transient ischemic attack. 4. Hyperlipidemia. 5. History of asthma. 6. History of DJD. 7. History of gait dysfunction. 8. History of cholecystectomy. 9. History of CAD with stent. 10.History of depression. 11.History of nicotine dependence. 12.Mild protein calorie malnutrition with BMI of 19.5. RECOMMENDATIONS AND DISCUSSION: In this 85-year-old woman who presented with multiple complex medical issues, we will monitor the patient closely. Continue the current management and continue symptomatic treatment. Continue the antiplatelet agents. We will add Lipitor to the current regimen. Otherwise, guarded prognosis because of multiple complex medical issues. Further recommendations to follow. Continue the rest of the medications. Also recommend PT OT evaluation. Speech pathology was also consulted. Further recommendations to follow. MULUGETA / CASIEN: [id number] / MTDD
[2020-10-12] MEDS ORDERED: ASPIRIN 325 MG TAB PO SCH (19:42)
[2020-10-12] MEDS ORDERED: NON FORMULARY DRUG (Omeprazole [Omeprazole] 20 MG Capsule.Dr) PO SCH (21:00)
[2020-10-12] MEDS: traZODone HCL 50 MG TAB PO SCH (21:05)
[2020-10-12] MEDS: MONTELUKAST 10 MG TAB PO SCH (21:05)
[2020-10-13] MEDS: PANTOPRAZOLE 40 MG TABLET PO SCH (06:47)
[2020-10-13] MEDS: CHOLECALCIFEROL 25 MCG (1000 IU) TABLET PO SCH (10:37)
[2020-10-13] MEDS: VENLAFAXINE HCL ER 150 MG CAP PO SCH (10:37)
[2020-10-13] MEDS: ASPIRIN 81 MG PO SCH (10:37)
[2020-10-13] MEDS: LEVOTHYROXINE 100 MCG TAB PO SCH (10:37)
[2020-10-13] MEDS: FOLIC ACID 1 MG TAB PO SCH (10:37)
[2020-10-13] MEDS: HEPARIN SODIUM,PORCINE/PF 5,000 UNIT/0.5 ML SYRINGE SQ SCH ×2 (10:37→21:10)
[2020-10-13] MEDS: ATORVASTATIN 10 MG TAB PO SCH (10:37)
[2020-10-13] MEDS: GABAPENTIN 100 MG CAP PO SCH ×3 (10:37→21:10)
[2020-10-13] MEDS: CALCIUM CARBONATE 500 MG CHEWABLE PO SCH (10:37)
[2020-10-13] MEDS: CYANOCOBALAMIN 500 MCG TAB PO SCH (10:37)
[2020-10-13] MEDS: DORZOLAMIDE BOTH EYES SCH ×2 (10:43→21:10)
[2020-10-13] MEDS: ACETAMINOPHEN TAB 500 MG TAB PO SCH ×2 (10:43→21:10)
[2020-10-13] MEDS: TIMOLOL BOTH EYES SCH ×2 (10:43→21:10)
[2020-10-13] MEDS: SODIUM CHLORIDE 0.9% 1,000 ML IV SCH ×3 (10:43→21:12)
--- NOTE | 2020-10-13 16:00 | PN ---
PROGRESS NOTE DATE OF SERVICE: 10/13/2020 INTERVAL HISTORY: This 85-year-old woman was admitted with diplopia and as well as gait dysfunction, possibly TIA. No chest pain. No palpitations. No fever. The patient also has ecchymoses over the left thigh, which is improving. The MRI did not show an acute stroke. No chest pain. No palpitations. No fever. PHYSICAL EXAMINATION: GENERAL: Patient is alert and oriented times two. VITAL SIGNS: Pulse 69, blood pressure 130/72, respirations 20, temperature 98.4, pulse ox 92% on 4 liters. HEENT: Conjunctivae normal. Oral mucosa moist. NECK: No jugular venous distention. No carotid bruits. No lymph node enlargement. RESPIRATORY: Breath sounds diminished at the bases. No rhonchi, no crackles. HEART: S1 and S2, muffled. ABDOMEN: Soft. EXTREMITIES: No edema, no swelling. NERVOUS: Minimal nystagmus on the left side. Minimal ecchymosis of the left eye. LABS: WBC 4.5, platelets 136, LDL is 110. COVID-19 is negative. ASSESSMENT: 1. Diplopia with incoordination, possibly acute transient ischemic attack. 2. Left ecchymosis, possibly traumatic. 3. History of cerebrovascular accident, transient ischemic attack. 4. Mild thrombocytopenia. 5. Hyperlipidemia. 6. History of asthma. 7. History of degenerative joint disease. 8. History of gait dysfunction. 9. Cholecystectomy. 10.History of CAD with stent. 11.History of depression. 12.History of nicotine dependence. 13.Protein calorie malnutrition with BMI of 19.5. RECOMMENDATIONS AND DISCUSSION: In this 85-year-old woman who presented with multiple complex medical issues, we will monitor the patient closely. Continue the current management and symptomatic treatment. Otherwise, at this time I recommend to continue current medications, neurology evaluation, PT OT evaluation. Ensure safety at home. Guarded prognosis. Further recommendations to follow. MMODL / IJN: [id number] /
[2020-10-13] MEDS: MONTELUKAST 10 MG TAB PO SCH (21:10)
[2020-10-13] MEDS: traZODone HCL 50 MG TAB PO SCH (21:11)
[2020-10-13 21:25] VITALS: RESP 16
--- NOTE | 2020-10-13 23:38 | P.PN ---
Subjective Progress Note Date: 10/13/20 This is a tele-neurology follow performed today. Patient states her diplopia has resolved. Offers no complaints. Objective - Vital Signs Vital signs: Vital Signs Temp 97.9 F 10/13/20 20:00 Pulse 72 10/13/20 20:00 Resp 16 10/13/20 20:00 BP 156/87 10/13/20 20:00 Pulse Ox 95 10/13/20 20:00 Intake & Output 10/13/20 10/13/20 10/14/20 06:59 18:59 06:59 Intake Total 480 250 Output Total 650 Balance 480 -400 Weight 48.3 kg Intake: Oral 480 250 Output: Urine 650 Other: Voiding Method Toilet Toilet Diaper Diaper # Voids 1 3 # Bowel Movements 1 - Exam Patient denies any symptoms. Mental status, speech and language functions are normal. Extraocular muscles are intact. Pupils are round and reacting. Face is symmetric. Cranial nerves normal. Muscle strength normal for age. Left periorbital ecchymosis improved. - Labs CBC & Chem 7: 10/12/20 08:17 10/12/20 08:17 Assessment and Plan Assessment: * Diplopia, appears to be mechanical in nature rather than neurological. Patient had developed spontaneous, atraumatic left periorbital ecchymosis on 10/08/2020 on waking up. I think after the blood product settled down, may have resulted in this diplopia from mechanical causes. No obvious cranial nerves deficits noted. Exam is otherwise nonfocal. MRI of brain is normal. Plan: * Patient's symptoms have resolved. All workup negative as below. * Patient had carotid Doppler, revealed no evidence of hemodynamically significant stenosis on the right. Any stenosis that may be present is less than 50%. Although there is mildly elevated left ICA/CCA ratio of 2.3, the peak systolic velocities and end-diastolic velocities on the left are within normal limits. There is likely no hemodynamically significant stenosis in any stenosis that may be present is likely less than 50%. Antegrade flow in both vertebral arteries. * Lipid panel with cholesterol 175, LDL 110, HDL 42 and triglycerides 114. Continue aspirin 81 mg and Lipitor 10 mg. * CT head and facial bones are normal. * MRI of the brain with and without contrast on 10/12/2020 shows mild cerebral atrophy. Minimal white matter changes from small vessel disease. No acute process. * 2-D echo revealed normal left-ventricular size. Normal left-ventricular wall thickness. EF is 55-60%. Left atrium is severely dilated. Right atrium is mildly enlarged. Moderate MR, moderate TR. * No other neurological workup indicated. Patient is clear for discharge from neurology point. * We will sign off.
[2020-10-14 04:52] VITALS: TEMP 97.4
[2020-10-14 07:15] LABS: Basophils % (A) 1 %; Eosinophils # (A) 0.2 k/uL (0-0.7); Eosinophils % (A) 5 %; HCT 37.2 % (34.0-46.0); HGB 12.6 gm/dL (11.4-16.0); Lymphocytes # (A) 1.1 k/uL (1.0-4.8); Lymphocytes % (A) 28 %; MCH 31.1 pg (25.0-35.0); MCHC 33.8 g/dL (31.0-37.0); MCV 91.9 fL (80.0-100.0); Mean Platelet Volume 8.2; Monocytes # (A) 0.4 k/uL (0-1.0); Monocytes % (A) 9 %; Neutrophils # (A) 2.3 k/uL (1.3-7.7); Neutrophils % (A) 56 %; Platelet Count 127 k/uL (150-450); RBC 4.05 m/uL (3.80-5.40); RDW 12.8 % (11.5-15.5); WBC 4.1 k/uL (3.8-10.6)
[2020-10-14] MEDS: GABAPENTIN 100 MG CAP PO SCH ×2 (08:16→15:54)
[2020-10-14] MEDS: FOLIC ACID 1 MG TAB PO SCH (08:16)
[2020-10-14] MEDS: CYANOCOBALAMIN 500 MCG TAB PO SCH (08:16)
[2020-10-14] MEDS: LEVOTHYROXINE 100 MCG TAB PO SCH (08:17)
[2020-10-14] MEDS: PANTOPRAZOLE 40 MG TABLET PO SCH (08:17)
[2020-10-14] MEDS: ATORVASTATIN 10 MG TAB PO SCH (08:17)
[2020-10-14] MEDS: CHOLECALCIFEROL 25 MCG (1000 IU) TABLET PO SCH (08:17)
[2020-10-14] MEDS: ASPIRIN 81 MG PO SCH (08:17)
[2020-10-14] MEDS: VENLAFAXINE HCL ER 150 MG CAP PO SCH (08:17)
[2020-10-14] MEDS: ACETAMINOPHEN TAB 500 MG TAB PO SCH (08:17)
[2020-10-14] MEDS: HEPARIN SODIUM,PORCINE/PF 5,000 UNIT/0.5 ML SYRINGE SQ SCH (08:17)
[2020-10-14] MEDS: CALCIUM CARBONATE 500 MG CHEWABLE PO SCH ×2 (08:17→08:25)
[2020-10-14] MEDS: TIMOLOL BOTH EYES SCH (08:25)
[2020-10-14] MEDS: DORZOLAMIDE BOTH EYES SCH (08:25)
[2020-10-14 11:17] LABS: African American GFR (CKD) 95.7 (60.0-200.0); BUN/Creat Ratio 16.67 Ratio (12.00-20.00); Calcium 8.4 mg/dL (8.7-10.3); Non-African American GFR(CKD) 82.5 (60.0-200.0); Potassium 3.9 mmol/L (3.5-5.5)
[2020-10-14 11:49] VITALS: BP 150/79; PULSE 55
[2020-10-14] MEDS: SODIUM CHLORIDE 0.9% 1,000 ML IV SCH (12:58)
--- NOTE | 2020-10-14 20:57 | DS ---
DISCHARGE SUMMARY DATE OF SERVICE: 10/14/2020 FINAL DIAGNOSES: 1. Diplopia with incoordination, possible acute transient ischemic attack. 2. Left periorbital ecchymosis, possibly traumatic, improved. 3. History of cerebrovascular accident, transient ischemic attack. 4. Mild thrombocytopenia. 5. Hyperlipidemia. 6. History of asthma. 7. History of degenerative joint disease. 8. History of gait dysfunction. 9. History of cholecystectomy. 10.History of coronary artery disease, stent. 11.History of depression. 12.History of nicotine dependence. 13.Protein-calorie malnutrition with body mass index of 19.4. DISCHARGE DISPOSITION: The patient will be discharged in stable condition with guarded prognosis. HISTORY OF PRESENT ILLNESS: This 85-year-old woman with past medical history of multiple medical problems was admitted with diplopia as well as nystagmus. TIA was suspected, treated symptomatically. Evaluation, including MRI and CT scan, did not show an acute stroke. Neurology saw the patient and the patient will be discharged in stable condition with guarded prognosis. On exam, vitals are stable. CARDIOVASCULAR SYSTEM: S1, S2 muffled. ABDOMEN: Soft. NERVOUS SYSTEM: No focal deficit. DISCHARGE ADVICE AND MEDICATIONS: 1. Discharge diet is cardiac. 2. Activity limited until followup. 3. Follow up with primary physician in 1-2 days. 4. Follow up with Dr. Miner, neurologist, in one week. 5. Antivert 25 daily p.r.n. 6. Calcium carbonate 600 mg p.o. daily. 7. Effexor XR 150 mg p.o. daily. 8. Folic acid 1 mg daily. 9. Levothyroxine 100 mcg p.o. daily. 10.Loteprednol 1 drop both eyes. 11.Melatonin 5 mg at bedtime. 12.Neurontin 100 mg p.o. t.i.d. 13.Omeprazole 20 mg p.o. b.i.d. 14.Singulair 10 mg at bedtime. 15.Trazodone 25 mg at bedtime. 16.Tylenol p.r.n. 17.Ventolin p.r.n. 18.Vitamin B12, 1000 mg p.o. daily. 19.Vitamin D3, 1000 daily. 20.Aspirin 81 mg daily. 21.Lipitor 10 mg p.o. daily. Once again, the patient will be discharged in stable condition with guarded prognosis. MULUGETA / BRIANDA: [id number] /
== END 2020-10-14 17:21 | disposition home or self-care (01) | DRG 69 ==
LOC: EC 17:20 → 3SCARD 19:39 → 5NMEDONC 10-13 18:43
PROVIDERS: ADMIT Hospitalist; ATTEND Hospitalist
DX: G45.9 Transient cerebral ischemic attack, unspecified (principal); E44.1 Mild protein-calorie malnutrition; Z68.1 Body mass index [BMI] 19.9 or less, adult; S00.12XA Contusion of left eyelid and periocular area, initial encounter; Z86.73 Personal history of transient ischemic attack (TIA), and cerebral infarction without residual deficits; D69.6 Thrombocytopenia, unspecified; H35.30 Unspecified macular degeneration; Z79.82 Long term (current) use of aspirin; Z79.83 Long term (current) use of bisphosphonates; Z79.890 Hormone replacement therapy; Z87.891 Personal history of nicotine dependence; Z82.49 Family history of ischemic heart disease and other diseases of the circulatory system; J45.909 Unspecified asthma, uncomplicated; Z80.9 Family history of malignant neoplasm, unspecified; M19.90 Unspecified osteoarthritis, unspecified site; E78.5 Hyperlipidemia, unspecified; I25.10 Atherosclerotic heart disease of native coronary artery without angina pectoris; Z95.5 Presence of coronary angioplasty implant and graft; R26.81 Unsteadiness on feet; F32.9 Major depressive disorder, single episode, unspecified; Z20.822 Contact with and (suspected) exposure to COVID-19
CPT/HCPCS: 36415; 70450; 70486; 70553; 71046; 80048; 80053; 80061; 85025; 85610; 85730; 87635; 93005; 93306; 93880; 96360; 96361; 99285

== ENCOUNTER → 2022-10-26 | Outpatient (CLI) | payer MEDICARE, BC ==
--- NOTE | 2022-10-27 15:16 | MM ---
Reason for Exam: Screening (asymptomatic). Last mammogram was performed 4 year(s) and 4 month(s) ago. Patient History: Menarche at age 11. First Full-Term at age 21. Hysterectomy at age 48. Postmenopausal. Prior Study Comparison: [facility] [place] . Tissue Density: The breast tissue is heterogeneously dense. This may lower the sensitivity of mammography. Findings: Analyzed By CAD. benign 30 years agoPattern appears symmetrical and stable. Benign calcifications within the right breast. There are some benign round calcifications within the left breast. No suspicious groups of microcalcifications, spiculated or lobular masses, architectural distortion or other secondary signs of malignancy are mammographically apparent. Overall Assessment: Benign, BI-RAD 2 Management: Screening Mammogram of both breasts in 1 year. A negative mammogram report should not preclude additional follow up of suspicious palpable abnormalities. Patient should continue monthly self breast exam. A clinical breast exam by your physician is recommended on an annual basis and results should be correlated with mammographic findings. Electronically signed and approved by: Eren Mahmood D.O. Radiologis
== END | disposition home or self-care (01) ==
LOC: RADMAMWWP 13:29
PROVIDERS: ATTEND Internal Medicine Geriatric Medicine
DX: Z12.31 Encounter for screening mammogram for malignant neoplasm of breast (principal); Z78.0 Asymptomatic menopausal state
CPT/HCPCS: 77063; 77067